=== PATIENT | female | born 1955 | race Two or more races ===

== ENCOUNTER 2023-02-27 08:34 | Inpatient (IN) | payer OTHER ==
[~2023-02-27] VITALS: Ht 165.1 cm; Wt 56.7 kg
[2023-02-27 10:09] LABS: HEMATOCRIT 32.5 % (36.0-45.00); MEAN CELL VOLUME 81.6 fL (80.00-100.00); MEAN CORPUSCULAR HEMOGLOBIN 27.6 pg (27.00-32.0); MEAN CORPUSCULAR HGB CONC 33.9 g/dl (32.0-36.0); PLATELET COUNT 563 K/uL (150-450); RED BLOOD COUNT 3.98 M/uL (4.00-6.00); RED CELL DISTRIBUTION WIDTH 15.9 % (11.5-14.5)
[2023-02-27] MEDS ORDERED: ATORVAS PO (10:18)
[2023-02-27] MEDS ORDERED: IRON325 MG PO (10:19)
[2023-02-27] MEDS ORDERED: FENOFIBRATE54 MG PO (10:19)
[2023-02-27] MEDS ORDERED: TIROSINT50 MCG PO (10:20)
[2023-02-27] MEDS ORDERED: METFORMIN HCL1000 M1 PO (10:20)
[2023-02-27] MEDS ORDERED: ACID REDUCER20 M1 PO (10:21)
[2023-02-27] MEDS ORDERED: ACTOS30 MG PO (10:21)
[2023-02-27] MEDS ORDERED: HYDROCH PO (10:22)
[2023-02-27] MEDS ORDERED: KEPPRA500 MG PO (10:22)
[2023-02-27] MEDS ORDERED: LOSARTAN-HCTZ1 EAC2 PO (10:23)
[2023-02-27 10:24] LABS: INR 0.98; PARTIAL THROMBOPLASTIN TIME 24.4 SECONDS (22.0-34.0); PROTHROMBIN TIME 10.3 SECONDS (9.0-11.5)
[2023-02-27 10:27] LABS: ALBUMIN 3.6 gm/dL (3.4-5.0); BILIRUBIN TOTAL 0.26 mg/dL (0.3-1.2); CALCIUM 9.9 mg/dL (8.5-10.1); CREATININE SERUM 0.74 mg/dL (0.55-1.02); GFR 78.28; GLOBULINA 3.4 G/DL (2.4-3.5); POTASSIUM 4.56 mEq/L (3.5-5.1)
[2023-03-05] MEDS ORDERED: ATORVASTATIN CA40 MG PO (16:35)
[2023-03-05] MEDS ORDERED: DONEPEZIL HCL10 MG PO (16:37)
[2023-03-05] MEDS ORDERED: MEMANTINE HCL10 MG PO (16:38)
[2023-03-05] MEDS ORDERED: LOSARTAN-HCTZ1 EAC2 (16:39)
[2023-03-07 08:25] LABS: HEMOGLOBIN 9.4 g/dL (12.0-15.00); MEAN CORPUSCULAR HEMOGLOBIN 27.3 pg (27.00-32.0); MEAN CORPUSCULAR HGB CONC 33.7 g/dl (32.0-36.0); PLATELET COUNT 424 K/uL (150-450); RED BLOOD COUNT 3.46 M/uL (4.00-6.00); RED CELL DISTRIBUTION WIDTH 16.6 % (11.5-14.5)
[2023-03-07 08:57] LABS: BILIRUBIN TOTAL 0.42 mg/dL (0.3-1.2); CALCIUM 9.4 mg/dL (8.5-10.1); CREATININE SERUM 0.66 mg/dL (0.55-1.02); GFR 89.33; GLOBULINA 2.9 G/DL (2.4-3.5); POTASSIUM 3.22 mEq/L (3.5-5.1); TOTAL PROTEIN 5.9 gm/dL (6.4-8.2)
[2023-03-08 07:49] LABS: CALCIUM 9.4 mg/dL (8.5-10.1); CREATININE SERUM 0.74 mg/dL (0.55-1.02); GFR 78.28; POTASSIUM 3.88 mEq/L (3.5-5.1)
== END 2023-03-09 01:46 | disposition home or self-care (01) | DRG 331 ==
LOC: O/R 03-05 05:53 → SURG 03-05 09:30 → O/R 03-05 13:58 → SURG 03-05 15:15 → SURH 03-05 20:02
PROVIDERS: Internal Medicine; ADMIT Surgery; ATTEND Surgery
PROC: 0DTF4ZZ Resection of Right Large Intestine, Percutaneous Endoscopic Approach (ICD-10-PCS; principal; 2023-03-05 15:15)
DX: C18.0 Malignant neoplasm of cecum (principal); R59.0 Localized enlarged lymph nodes